=== PATIENT | male | born 1970 | race Caucasian/White ===

== ENCOUNTER 2022-06-19 10:55 | Emergency (ER) | payer OTHER ==
[~2022-06-19] VITALS: Ht 172.7 cm; Wt 142.9 kg
[~2022-06-19 10:55] MED LIST: AZITHROMYCIN500 MG PO; BACLOFEN10 MG PO; DRISDOL50000 UNIT PO; FLEXERIL10 MG PO; MELOXICAM15 MG PO; NORCO 5-325 TA1 EACH PO
[2022-06-19] MEDS ORDERED: BUPROPION HCL75 MG PO (11:11)
[2022-06-19] MEDS ORDERED: ZESTRIL10 MG PO (11:11)
[2022-06-19] MEDS ORDERED: HYDROCODON-ACE1 EA10 PO (12:04)
== END 2022-06-19 12:16 | disposition home or self-care (01) ==
LOC: ED 10:55
DX: S46.912A Strain of unspecified muscle, fascia and tendon at shoulder and upper arm level, left arm, initial encounter (principal); I10 Essential (primary) hypertension; Z87.891 Personal history of nicotine dependence; Z88.5 Allergy status to narcotic agent; Z88.0 Allergy status to penicillin; Z79.899 Other long term (current) drug therapy; W01.0XXA Fall on same level from slipping, tripping and stumbling without subsequent striking against object, initial encounter
CPT/HCPCS: 73030; 99283-25; A9270